=== PATIENT | male | born 1950 | race Caucasian/White ===

== ENCOUNTER 2022-03-12 11:45 | Inpatient (IN) | payer MEDICARE ==
[~2022-03-12] VITALS: Ht 188 cm; Wt 64.9 kg
[2022-03-12] MEDS ORDERED: IV NORMAL SALINE 1000 ML BAG IV ONE ×2 (12:00→13:45)
--- NOTE | 2022-03-12 12:01 | NUR ---
PT DOES NOT REMEMBER HIS HOME MEDICATION NAMES AND DOSAGES.
[2022-03-12 12:09] LABS: HEMATOCRIT 41.9 % (36.7-47.1); MEAN CORPUSCULAR HEMOGLOBIN 29.5 uug (23.8-33.4); MEAN CORPUSCULAR VOLUME 90.9 fL (73.0-96.2); PLATELET COUNT (AUTO) 161 K/uL (152-348)
[2022-03-12 12:26] LABS: ALANINE AMINOTRANSFERASE 13 U/L (16-63); ALKALINE PHOSPHATASE 89 U/L (50-136); ASPARTATE AMINOTRANSFERASE 10 U/L (15-37); BILIRUBIN,DIRECT 0.2 mg/dL (0.0-0.2); BILIRUBIN,TOTAL 0.9 mg/dL (0.2-1.0); CARBON DIOXIDE 19 mmol/L (21-32); CHLORIDE 96 mmol/L (98-107); POTASSIUM 4.7 mmol/L (3.5-5.1); TOTAL PROTEIN, SERUM 7.3 g/dL (6.4-8.2); UREA NITROGEN, BLOOD 46 mg/dL (7-18)
[2022-03-12 12:32] LABS: GLUCOSE 560 mg/dL (74-106)
[2022-03-12 12:42] LABS: VENT MODE, VBG room air
[2022-03-12] MEDS ORDERED: INSULIN REGULAR, HUMAN 300 UNIT/3 ML VIAL SQ ONE (13:45)
[2022-03-12] MEDS ORDERED: REMEDY ESSENTIAL ZINC PASTE 113 GM TP PRN (14:00)
[2022-03-12] MEDS ORDERED: IV NS 1000 ML 1,000 ML IV PRN (14:00)
[2022-03-12] MEDS ORDERED: DEXTROSE 50% 50 ML DISP.SYRIN IV PRN (14:00)
[2022-03-12] MEDS ORDERED: MAGNESIUM HYDROXIDE 30 ML LIQUID UDC PO PRN (14:00)
[2022-03-12] MEDS ORDERED: ONDANSETRON 4 MG/2 ML VIAL IV PRN (14:00)
[2022-03-12] MEDS ORDERED: INSULIN REGULAR, HUMAN 300 UNIT/3 ML VIAL ONE (14:16)
[2022-03-12] MEDS ORDERED: CEFTRIAXONE /D5W 50ML IVPB **ER PYXIS IV ONE (14:28)
[2022-03-12] MEDS: CEFTRIAXONE 1 G in IV DEXTROSE 5% 50 ML IV SCH (14:29)
[2022-03-12] MEDS ORDERED: HYDROCODONE/APAP 10-325 MG TABLET ONE (14:55)
[2022-03-12] MEDS: HYDROCODONE/APAP 10-325 MG TABLET PO PRN ×2 (14:58→21:40)
[2022-03-12] MEDS: BLOOD SUGAR DIAGNOSTIC 1 EACH STRIP VI SCH ×2 (16:27→20:41)
[2022-03-12] MEDS: INSULIN REGULAR, HUMAN 300 UNIT/3 ML VIAL SQ PRN ×2 (16:31→21:42)
--- NOTE | 2022-03-12 16:52 | NUR ---
Report given to AUGUSTA Diaz
--- NOTE | 2022-03-12 17:24 | NUR ---
Patient transferred to room 318 in telemetry unit. Accompanied by RN.
[2022-03-12] MEDS ORDERED: BISACODYL 5 MG TABLET.DR PO PRN (17:30)
[2022-03-12 20:35] VITALS: BP 119/61
[2022-03-12] MEDS: TAMSULOSIN HCL 0.4 MG CAP.SR.24H PO SCH (21:40)
[2022-03-13] MEDS: HYDROCODONE/APAP 10-325 MG TABLET PO PRN ×2 (00:22→08:34)
[2022-03-13] MEDS: BLOOD SUGAR DIAGNOSTIC 1 EACH STRIP VI SCH ×6 (00:28→21:46)
[2022-03-13 00:32] VITALS: BP 106/56
[2022-03-13] MEDS: INSULIN REGULAR, HUMAN 300 UNIT/3 ML VIAL SQ PRN ×4 (00:35→16:09)
[2022-03-13] MEDS: IV NS 1000 ML 1,000 ML IV PRN ×2 (03:11→15:05)
[2022-03-13] MEDS: HYDROMORPHONE 1 MG/1 ML DISP.SYRIN IV PRN ×2 (03:25→10:10)
[2022-03-13 04:42] VITALS: BP 110/58
--- NOTE | 2022-03-13 06:56 | NUR ---
Bladder scan 383. Patient refuses in and out catheter.
[2022-03-13 07:20] LABS: HEMATOCRIT 30.6 % (36.7-47.1); MEAN CORPUSCULAR HEMOGLOBIN 31.1 uug (23.8-33.4); MEAN CORPUSCULAR VOLUME 88.6 fL (73.0-96.2); PLATELET COUNT (AUTO) 105 K/uL (152-348)
[2022-03-13 07:50] LABS: ALANINE AMINOTRANSFERASE 20 U/L (16-63); ALKALINE PHOSPHATASE 67 U/L (50-136); ASPARTATE AMINOTRANSFERASE 15 U/L (15-37); BILIRUBIN,TOTAL 0.3 mg/dL (0.2-1.0); CARBON DIOXIDE 20 mmol/L (21-32); CHLORIDE 99 mmol/L (98-107); GLUCOSE 147 mg/dL (74-106); MAGNESIUM 1.3 mg/dL (1.8-2.4); PHOSPHOROUS 3.4 mg/dL (2.5-4.9); POTASSIUM 4.1 mmol/L (3.5-5.1); TOTAL PROTEIN, SERUM 5.8 g/dL (6.4-8.2); UREA NITROGEN, BLOOD 52 mg/dL (7-18)
--- NOTE | 2022-03-13 08:00 | NUR ---
Awake, alert, oriented x 4, reports of back pain. IVF infusing
--- NOTE | 2022-03-13 08:00 | NUR ---
Awake, confused, on bilateral soft wrist restraints, monitored per protocol. IVF infusing. NPO maintained Addendum: 03/13/22 at 1300 by ZINA GILLILAND RN notes not for this patient
[2022-03-13] MEDS ORDERED: MAGNESIUM SULFATE/D5W 100 ML IV SCH (10:00)
[2022-03-13] MEDS: MAGNESIUM SULFATE/D5W 100 ML IV SCH ×2 (10:03→11:04)
--- NOTE | 2022-03-13 10:10 | NUR ---
Back pain not relieved with Lamar po, Dilaudid IV given as ordered
[2022-03-13 11:53] VITALS: BP 104/59
[2022-03-13] MEDS ORDERED: DILTIAZEM HCL 30 MG TABLET PO SCH (12:00)
[2022-03-13] MEDS ORDERED: DEXTROSE 50% 50 ML DISP.SYRIN IV PRN (12:45)
--- NOTE | 2022-03-13 12:56 | NUR ---
Started on pureed, nectar thick diet, assisted with meal Addendum: 03/13/22 at 1301 by ZINA GILLILAND RN notes not for this patient
[2022-03-13] MEDS: CEFTRIAXONE 1 G in IV DEXTROSE 5% 50 ML IV SCH (13:39)
[2022-03-13] MEDS: HYDROMORPHONE 2 MG/1 ML DISP.SYRIN IV PRN ×2 (13:40→21:45)
--- NOTE | 2022-03-13 13:40 | NUR ---
With severe back pain, unable to move in bed. Dilaudid dose increased, given as ordered.
--- NOTE | 2022-03-13 15:29 | NUR ---
Refused to give list of home medications today, will follow up
[2022-03-13] MEDS: ACETAMINOPHEN 325 MG TABLET PO PRN (15:59)
--- NOTE | 2022-03-13 16:00 | NUR ---
Temperature 101.6F; Tylenol po given. O2 sat room air 88%, placed on O2 at 2L/NC with O2 sat of 91%, placed on 3L/NC with O2 sat of 94%. hospitalist informed with orders for CXR. Pain better controlled. PT eval done. Assisted to edge of bed, able to stand up.
[2022-03-13 16:32] VITALS: BP 131/64
[2022-03-13 17:51] LABS: *BILIRUBIN,URIN NEGATIVE (NEGATIVE); *BLOOD, URINE NEGATIVE (NEGATIVE); *CLARITY,URINE CLEAR (CLEAR); *COLOR,URINE YELLOW (YELLOW); *KETONES,URINE TRACE (NEGATIVE); *UROBILINOGEN,URINE 0.2 E.U./dl (NORMAL); LEUKOCYTE ESTERASE ,URINE NEGATIVE (NEGATIVE); NITRITE, URINE NEGATIVE (NEGATIVE); UGLUCOSE NEGATIVE (NEGATIVE)
--- NOTE | 2022-03-13 17:57 | NUR ---
With poor appetite, encouraged to take oral supplement. Urine specimen sent to lab. Latest temperature 99.9F
--- NOTE | 2022-03-13 20:00 | NUR ---
Bladder scan not done. Patient refused
[2022-03-13 20:31] VITALS: BP 144/72
[2022-03-13] MEDS: TAMSULOSIN HCL 0.4 MG CAP.SR.24H PO SCH (21:45)
[2022-03-13] MEDS ORDERED: MEROPENEM 1 G in IV NORMAL SALINE 100 ML IV SCH (22:00)
[2022-03-14] MEDS: INSULIN REGULAR, HUMAN 300 UNIT/3 ML VIAL SQ PRN ×4 (00:03→22:02)
[2022-03-14 00:36] VITALS: BP 144/72
[2022-03-14] MEDS: HYDROCODONE/APAP 10-325 MG TABLET PO PRN ×3 (00:52→18:06)
[2022-03-14 04:05] VITALS: BP 160/60
[2022-03-14] MEDS: HYDROMORPHONE 2 MG/1 ML DISP.SYRIN IV PRN ×3 (04:07→22:06)
--- NOTE | 2022-03-14 04:56 | NUR ---
Patient sleeps on and off when medicated for pain. He complains of severe back pain. He is medicated three time this shift with some good effect. Patient encouraged to keep O2 on as O2 sat drops to 88% without oxygen. Oxygen saturation remains at 94% on 3L/min. No fever this shift 99.4 at 2000 and 98.3 at 0000.
[2022-03-14] MEDS: BLOOD SUGAR DIAGNOSTIC 1 EACH STRIP VI SCH ×4 (06:37→22:03)
[2022-03-14 07:29] LABS: HEMATOCRIT 32.2 % (36.7-47.1); PLATELET COUNT (AUTO) 110 K/uL (152-348)
[2022-03-14 07:41] LABS: CREATININE 1.3 mg/dL (0.6-1.3); MAGNESIUM 2.1 mg/dL (1.8-2.4); POTASSIUM 4.4 mmol/L (3.5-5.1)
[2022-03-14] MEDS ORDERED: MEROPENEM 1 G in IV NORMAL SALINE 100 ML IV ONE (08:00)
[2022-03-14] MEDS: LIDOCAINE 5% PATCH TD SCH (08:31)
[2022-03-14] MEDS: GLUCERNA SHAKE 237 ML CAN PO SCH (08:44)
[2022-03-14] MEDS ORDERED: IV NORMAL SALINE 250 ML IV ONE (08:59)
[2022-03-14] MEDS ORDERED: IOHEXOL 350 100 ML INFUS..BTL ONE (08:59)
[2022-03-14] MEDS ORDERED: SWABABLE VALVE TRANSFER SET EA MC ONE (08:59)
[2022-03-14] MEDS ORDERED: HEPARIN SODIUM,PORCINE 5,000 UNITS/ML VIAL SQ SCH (09:00)
--- NOTE | 2022-03-14 09:19 | NUR ---
patient agreed to proceed with CTA Chest Angio. RN to fill out Contrast Consent form before procedure. RN notified to call Radiology when ready.
[2022-03-14 12:21] VITALS: BP 160/75
[2022-03-14 13:06] LABS: ABG BASE EXCESS -11.7 mmol/L; ABG HCO3 12.8 mmol/L; ABG PCO2 25.6 mmHg (35.0-45.0); ABG PH 7.317 (7.350-7.450); ABG PO2 155.1 mmHg (75.0-100.0); ABG SITE RIGHT RADIAL; ABG TOTAL HEMOGLOBIN 11.5 G/dL (13.5-18.0); COHb 0.3 % (0.5-1.5); MetHb 0.3 % (0.0-1.5); O2Hb 98.3 % (94.0-97.0)
[2022-03-14] MEDS: ENOXAPARIN SODIUM 60 MG/0.6 ML DISP.SYRIN SQ SCH ×2 (13:39→21:10)
[2022-03-14] MEDS ORDERED: SODIUM BICARBONATE 8.4% 50 MEQ/50 ML DISP.SYRIN IV ONE (14:00)
[2022-03-14] MEDS ORDERED: FUROSEMIDE 40 MG/4 ML VIAL IV ONE (14:00)
[2022-03-14 17:09] VITALS: BP 153/84
--- NOTE | 2022-03-14 17:17 | NUR ---
At 1645 noted patient having low BS of 75/37 and pt. was asymptomatic. At 1715 BP rechecked and noted to be 86/41. Reported to Dr. Drake and received order for bolus 500cc NS. will keep monitoring the patient. Addendum: 03/14/22 at 1838 by IAN VILLAGRAN RN Error
[2022-03-14] MEDS: MEROPENEM 1 G in IV NORMAL SALINE 100 ML IV SCH (20:05)
[2022-03-14 20:52] VITALS: BP 106/55
[2022-03-14] MEDS: TAMSULOSIN HCL 0.4 MG CAP.SR.24H PO SCH (21:08)
[2022-03-15] VITALS (37 sets, daily range): BP systolic 67–135; BP diastolic 33–100
[2022-03-15] MEDS: HYDROCODONE/APAP 10-325 MG TABLET PO PRN (00:50)
[2022-03-15] MEDS: HYDROMORPHONE 2 MG/1 ML DISP.SYRIN IV PRN (01:54)
[2022-03-15] MEDS ORDERED: DILTIAZEM HCL 25 MG IV IV STA (03:14)
[2022-03-15] MEDS ORDERED: IV NORMAL SALINE 500 ML BAG IV ONE (05:00)
--- NOTE | 2022-03-15 06:33 | NUR ---
Yesterday patient was refusing to put Tele back; when tele was placed back, pt is tachycardic and was in pain, dilaudid and norco for pain management; when pt was pain free, pt's heart rate remains on the 140-150's sustaining; pt is also afebrile; EKG STAT done and referred to Antonia BURNS NP and orders for cardizem 10 mg IVP x1; pt's heart rate remains unchanged with the cardizem bolus and HR remains unchanged; BP dropped to 95/55, this was referred to Antonia BURNS NP and bolus of 500 ml NS and administered; latest BP is 127/90 and HR remains 130s-140s. continue to monitor. BS is 220
[2022-03-15] MEDS: BLOOD SUGAR DIAGNOSTIC 1 EACH STRIP VI SCH ×4 (06:41→21:16)
[2022-03-15 06:48] LABS: MEAN CORPUSCULAR HEMOGLOBIN 30.7 uug (23.8-33.4); PLATELET COUNT (AUTO) 221 K/uL (152-348)
[2022-03-15 06:56] LABS: CARBON DIOXIDE 20 mmol/L (21-32); CHLORIDE 107 mmol/L (98-107); CREATININE 2.5 mg/dL (0.6-1.3); GLUCOSE 230 mg/dL (74-106); POTASSIUM 4.5 mmol/L (3.5-5.1); UREA NITROGEN, BLOOD 57 mg/dL (7-18)
--- NOTE | 2022-03-15 07:20 | NUR ---
Found patient desaturating at 80% 02 sat on NRB mask @ 15Lit, pt obtunded and unarousable, breathing very shallow and gasping for air. Resp 24. VS b/p 82/45 - hr 144 tele sydnee, BS 191. Called Rapid response team. Ordered ABG, cxr. Awaiting call back from fadi. Aura Nurse gardening supervisor called ER dr for possible intubation and assessment on patient. [address] Aguirre at bedside ordered to give NS BOLUS, [id number] iv push x 1 and succinycholine 100mg iv pushx 1 and levophed drip to prepare patient for intubation and ER transfer. @733 NS BOLUS started. No ER nurse available to help with rapid and code. @739 Called max macdonald in order to get pharmacist to come up with medications and emergency medication trays. Functioned on giving medications with assistance of pharmacist and dr Aguirre. @745 etomidate and succininycholine given as ordered @746 DR aguirre successfully intubated with RT team. @753 max macdonald called. @755 Levophed started as ordered. current b/p @ the time 61/46 ,pulse 139, o2 sat 100% managed by RT team) @800 increased levophed to 0.2 mcg /kg/min secondary to b/p still low. 65/31 - hr 140 to maintain SBP above 90's @805 b/p 127/73, pulse 145 ,o2 sat 98%. @810 b/p 148/86 pulse 149 99%o2sat. decreased levophed @ 0.1mcg/kg/min. @820 pt sent down to ER/ICU report given to ICU nurse. last b/p 126/70-98%02 sat , pulse 148. Spoke with TUBE WINDER HAND hospitalist fadi. ABG in 2 hrs ordered per fadi.
--- NOTE | 2022-03-15 07:55 | NUR ---
Patient in from [facility] unit accompanied by two RT's. and two nursing students. Patient intubated, severely restless agitated. Heart rate in the 150's 160's and sbp of 117/68. ETT 7.5 and 26LL this after ETT was advanced 2cm as ordered by intubating physician Dr. Gonzalez. Upon arrival pt. situated on cardiac cath technician. and immediately started on propofol drip due to severe agitation and high risk of self extubation. Patient received with levophed running at 0.1 mcg/kg/min. Abattoir Supervisor called and report given to latest EKG done. Orders to change levophed and start Phenylephrine. Addendum: 03/15/22 at 1103 by TULIO BAKER RN Attending also notified upon arrival and orders for propofol received.
[2022-03-15] MEDS ORDERED: NOREPINEPHRINE BITARTRATE 8 MG in IV NORMAL SALINE 242 ML IV PRN (08:30)
[2022-03-15 08:40] LABS: BAND % (MANUAL) 4 % (0-10); LYMPHOCYTES % (MANUAL) 7 % (20-40); METAMYELOCYTES % 1 % (0-1); MONOCYTES % (MANUAL) 24 % (2-10); MYELOCYTES % 1 % (0-0); NEUTROPHILS % (MANUAL) 63 % (42-75)
[2022-03-15] MEDS: GLUCERNA SHAKE 237 ML CAN PO SCH (09:00)
[2022-03-15] MEDS ORDERED: PHENYLEPHRINE IV 100 MG in IV NORMAL SALINE 240 ML IV PRN (09:00)
[2022-03-15] MEDS ORDERED: AMIODARONE HCL IV 150 MG in IV DEXTROSE 5% 100 ML IV ONE (09:00)
--- NOTE | 2022-03-15 09:00 | NUR ---
PICC line insertion in progress no consent Attending ordered as medical necessity See attending notes.
[2022-03-15] MEDS: AMIODARONE HCL IV 450 MG in IV DEXTROSE 5% 250 ML IV PRN ×3 (09:36→15:57)
[2022-03-15] MEDS: PROPOFOL 100 ML IV PRN ×3 (09:38→21:06)
[2022-03-15] MEDS ORDERED: ENOXAPARIN SODIUM 60 MG/0.6 ML DISP.SYRIN SQ ONE ×2 (10:08→20:34)
[2022-03-15] MEDS: MEROPENEM 1 G in IV NORMAL SALINE 100 ML IV SCH ×2 (10:13→21:47)
[2022-03-15] MEDS: ENOXAPARIN SODIUM 60 MG/0.6 ML DISP.SYRIN SQ SCH ×2 (10:17→21:07)
[2022-03-15] MEDS ORDERED: LIDOCAINE 5% PATCH TD ONE (10:18)
[2022-03-15] MEDS: LIDOCAINE 5% PATCH TD SCH (10:23)
[2022-03-15] MEDS ORDERED: SODIUM BICARBONATE 8.4% 50 MEQ/50 ML DISP.SYRIN IV ONE ×2 (10:30→10:42)
[2022-03-15] MEDS ORDERED: ETOMIDATE 20 MG/10 ML VIAL IV ONE (10:38)
[2022-03-15] MEDS ORDERED: SUCCINYLCHOLINE CHLORIDE 200 MG/10 ML VIAL IV ONE (10:38)
--- NOTE | 2022-03-15 11:00 | NUR ---
Attending Bonita Turner in the unit to follow up on pt. Addendum: 03/15/22 at 1519 by TULIO BAKER RN At this time Attending over the phone discussed care plan with family.
--- NOTE | 2022-03-15 11:45 | NUR ---
Pulmonary services. in the unit with his orders after seen patient restless and agitated propofol maxed out to 50mcg/kg/min and orders to start pt. on fentanyl drip and versed drip received.
[2022-03-15] MEDS: INSULIN REGULAR, HUMAN 300 UNIT/3 ML VIAL SQ PRN ×2 (11:47→21:25)
[2022-03-15] MEDS: FENTANYL CITRATE/PF 1,000 MCG in IV NORMAL SALINE 80 ML IV PRN (12:20)
[2022-03-15] MEDS: MIDAZOLAM HCL 50 MG in IV NORMAL SALINE 40 ML IV PRN (12:20)
--- NOTE | 2022-03-15 12:45 | NUR ---
NG_T inserted at this time placement confirmed via auscultation follow up by X-ray.
[2022-03-15] MEDS ORDERED: PROPOFOL 100 ML ONE ×2 (13:45→21:02)
[2022-03-15] MEDS ORDERED: methylPREDNISolone SOD SUCC 40 MG/ML VIAL ONE ×2 (15:08→20:34)
[2022-03-15] MEDS: methylPREDNISolone SOD SUCC 40 MG/ML VIAL IV SCH ×2 (15:09→21:08)
[2022-03-15] MEDS ORDERED: TAMSULOSIN HCL 0.4 MG CAP.SR.24H ONE (20:35)
[2022-03-15] MEDS: TAMSULOSIN HCL 0.4 MG CAP.SR.24H PO SCH (21:08)
[2022-03-16] VITALS (31 sets, daily range): BP systolic 119–149; BP diastolic 47–73
[2022-03-16] MEDS: MIDAZOLAM HCL 50 MG in IV NORMAL SALINE 40 ML IV PRN ×2 (00:31→13:01)
[2022-03-16] MEDS ORDERED: SULFACETAMIDE SOD 10% OPHT DR 15 ML BOTTLE ONE (02:21)
[2022-03-16] MEDS ORDERED: PROPOFOL 100 ML ONE ×2 (04:55→20:56)
[2022-03-16 05:01] LABS: HEMATOCRIT 33.9 % (36.7-47.1); MEAN CORPUSCULAR HEMOGLOBIN 30.9 uug (23.8-33.4); MEAN CORPUSCULAR VOLUME 91.6 fL (73.0-96.2); PLATELET COUNT (AUTO) 235 K/uL (152-348)
[2022-03-16] MEDS: PROPOFOL 100 ML IV PRN ×3 (05:30→23:17)
[2022-03-16] MEDS ORDERED: methylPREDNISolone SOD SUCC 40 MG/ML VIAL ONE ×3 (05:41→22:59)
[2022-03-16 05:44] LABS: BILIRUBIN,DIRECT 0.3 mg/dL (0.0-0.2); BILIRUBIN,TOTAL 0.6 mg/dL (0.2-1.0); TOTAL PROTEIN, SERUM 5.9 g/dL (6.4-8.2)
[2022-03-16] MEDS: AMIODARONE HCL IV 450 MG in IV DEXTROSE 5% 250 ML IV PRN (05:46)
[2022-03-16] MEDS: methylPREDNISolone SOD SUCC 40 MG/ML VIAL IV SCH ×3 (05:54→23:22)
[2022-03-16 06:03] LABS: ABG BASE EXCESS -16.8 mmol/L; ABG HCO3 11.7 mmol/L; ABG PCO2 36.8 mmHg (35.0-45.0); ABG PH 7.119 (7.350-7.450); ABG PO2 70.5 mmHg (75.0-100.0); ABG SITE LEFT BRACHIAL; ABG TOTAL HEMOGLOBIN 12.5 G/dL (13.5-18.0); COHb 0.3 % (0.5-1.5); MetHb 0.4 % (0.0-1.5); O2Hb 90.8 % (94.0-97.0); VENT MODE VENT - A/C; VT, ABG 500 mL
[2022-03-16] MEDS ORDERED: ACETAMINOPHEN 325 MG SUPP ONE (06:07)
[2022-03-16] MEDS ORDERED: ACETAMINOPHEN 325 MG TABLET ONE (06:08)
--- NOTE | 2022-03-16 06:13 | NUR ---
G DONE, ALL CRITICAL VALUES RELAYED TO AUGUSTA CAPONE
[2022-03-16] MEDS: ACETAMINOPHEN 325 MG TABLET PO PRN (06:22)
--- NOTE | 2022-03-16 07:00 | NUR ---
Pt. endorsed critical guarded. Pt. remains on Neosynehrine,amiodarone, fentanyl, versed,and propofol .. HR is in 120's Spo2 in low 90s'and pt. on Fio2 100% as documented. inspector filters in for eval . no further interventions could be made. See notes. Pt. hyperthermic at 102.2 Tylenol 650 given and ice compresses. Appears to be comfortable resting on left side. Endorsed injury free. 3 SR up.
--- NOTE | 2022-03-16 07:00 | NUR ---
Received pt. on ventilator A/C 16 Tv 500 Peep +5 and FIO2 100%. no distress noted saturation within desired limits. On fentanyl running at 100mcg/hr, versed at 5mg/hr. adequately sedated. Hemodynamically on sinu/afib controlled uncontrolled rate no greater than 120's On vasopressor with sbp within desire limits. Fever of 100.0 NT-clamped. Jha to gravity PICC line in place. Will continue with care plan.
--- NOTE | 2022-03-16 07:25 | NUR ---
Pt received on Khan ventilator orally intubated with 7.5 ETT secured at 26cm lip line. Pt on ordered settings of A/C 16, VT 500, +5 PEEP , 100% FiO2. Pt tolerating vent settings well. Suctioned for small amounts of yellowish secretions. No respiratory distress noted. Bag/valve/mask at bedside. HME changed. Oral care done. Vent plugged into red emergency outlet. Will continue to monitor.
--- NOTE | 2022-03-16 07:42 | NUR ---
ABG reports given to pulmonary services, Dr. Barry orders received. TV 550, and 2 AMPS of bicarb received.
[2022-03-16] MEDS ORDERED: ALBUMIN HUMAN 25% 50 ML ONE ×2 (08:00→23:00)
[2022-03-16] MEDS ORDERED: LIDOCAINE 5% PATCH TD ONE (08:00)
[2022-03-16] MEDS ORDERED: FUROSEMIDE 20 MG/2 ML VIAL ONE (08:00)
[2022-03-16] MEDS ORDERED: SODIUM BICARBONATE 8.4% 50 MEQ/50 ML DISP.SYRIN IV ONE ×2 (08:00→08:50)
[2022-03-16 08:25] LABS: CARBON DIOXIDE 14 mmol/L (21-32); CHLORIDE 102 mmol/L (98-107); CREATININE 4.6 mg/dL (0.6-1.3); POTASSIUM 5.6 mmol/L (3.5-5.1)
--- NOTE | 2022-03-16 08:30 | NUR ---
Vent changes made per MD order. VT increased to 550. RN Ojie aware. Pt tolerating vent settings well.
[2022-03-16] MEDS: ALBUMIN HUMAN 25% 100 ML IV SCH ×3 (08:46→23:24)
[2022-03-16] MEDS: BLOOD SUGAR DIAGNOSTIC 1 EACH STRIP VI SCH ×4 (08:52→21:00)
[2022-03-16] MEDS: FUROSEMIDE 40 MG/4 ML VIAL IV SCH ×2 (08:58→23:21)
[2022-03-16] MEDS: LIDOCAINE 5% PATCH TD SCH (08:59)
[2022-03-16] MEDS: GLUCERNA SHAKE 237 ML CAN PO SCH (08:59)
[2022-03-16] MEDS: INSULIN REGULAR, HUMAN 300 UNIT/3 ML VIAL SQ PRN ×4 (09:02→23:11)
[2022-03-16] MEDS ORDERED: AMIODARONE HCL 200 MG TABLET ONE ×2 (09:14→22:31)
[2022-03-16] MEDS: AMIODARONE HCL 200 MG TABLET PO SCH ×2 (09:15→22:32)
--- NOTE | 2022-03-16 09:46 | NUR ---
Pulmonary services, Dr. Barry in the unit to see and examine pt. report given order for 3amps of bicarb in D51/2NS at 100cc/hr received and implemented.
[2022-03-16] MEDS: MEROPENEM 1 G in IV NORMAL SALINE 100 ML IV SCH (10:05)
[2022-03-16] MEDS: SODIUM BICARBONATE 8.4% 150 MEQ in IV D5 1/2 NS 1000 ML 1,000 ML IV PRN ×2 (10:37→23:08)
[2022-03-16 10:39] LABS: GLUCOSE 347 mg/dL (74-106); UREA NITROGEN, BLOOD 86 mg/dL (7-18)
[2022-03-16] MEDS: FENTANYL CITRATE/PF 1,000 MCG in IV NORMAL SALINE 80 ML IV PRN ×2 (13:18→22:06)
[2022-03-16] MEDS ORDERED: ALBUMIN HUMAN 25% 100 ML ONE (14:11)
[2022-03-16] MEDS: GLUCERNA 1.2 1000ML LIQUID GT PRN (17:53)
--- NOTE | 2022-03-16 18:19 | NUR ---
Patient remains on the ventilator on AC rate of 16, TV 500, PEEP of 5, 100%FiO2. No tachypnea, no distress noted, and O2 sat of 100%. Minimal secretions thru ET tube and orally. Neuro gillespie adequately sedated, propofol running at 30 mcg/kg/min, fentanyl at 100 mcg/kg/min, versed 5 mcg/kg/min. Unable to remove stop propofol. Hemodynamically sinus rhythm, BP WNL of vasopressors. Mild generalized edema. GI gillespie started on glucerna as ordered. gillespie reyes to gravity with 0 output attending aware. Skin breakdown no complications, PICC line patent will endorse for continuative care.
[2022-03-16] MEDS ORDERED: ENOXAPARIN SODIUM 60 MG/0.6 ML DISP.SYRIN SQ SCH (21:00)
--- NOTE | 2022-03-16 21:02 | NUR ---
Dr Epstein called and stated he spoke with cammie Garcia who agree to have diaysis cath placed.
[2022-03-16] MEDS ORDERED: MEROPENEM 500 MG VIAL IV ONE (22:59)
[2022-03-16] MEDS ORDERED: FUROSEMIDE 40 MG/4 ML VIAL ONE (22:59)
[2022-03-16] MEDS ORDERED: ENOXAPARIN SODIUM 60 MG/0.6 ML DISP.SYRIN SQ ONE (23:00)
[2022-03-16] MEDS ORDERED: TAMSULOSIN HCL 0.4 MG CAP.SR.24H ONE (23:01)
[2022-03-16] MEDS ORDERED: MEROPENEM 500MG/NS 50ML PB ***ER PYXIS ONLY IV ONE (23:02)
[2022-03-16] MEDS: TAMSULOSIN HCL 0.4 MG CAP.SR.24H PO SCH (23:20)
[2022-03-16] MEDS: MEROPENEM 500 MG in IV NORMAL SALINE 50 ML IV SCH (23:21)
[2022-03-17] VITALS (16 sets, daily range): BP systolic 112–144; BP diastolic 44–69
[2022-03-17] MEDS ORDERED: ALBUMIN HUMAN 25% 50 ML ONE (02:25)
[2022-03-17] MEDS: ALBUMIN HUMAN 25% 100 ML IV SCH (02:36)
[2022-03-17] MEDS: MIDAZOLAM HCL 50 MG in IV NORMAL SALINE 40 ML IV PRN ×3 (04:15→21:31)
[2022-03-17 05:14] LABS: CARBON DIOXIDE 25 mmol/L (21-32); CHLORIDE 105 mmol/L (98-107); CREATININE 4.7 mg/dL (0.6-1.3); MAGNESIUM 2.6 mg/dL (1.8-2.4); PHOSPHOROUS 5.9 mg/dL (2.5-4.9); POTASSIUM 3.9 mmol/L (3.5-5.1)
[2022-03-17 05:18] LABS: GLUCOSE 345 mg/dL (74-106); UREA NITROGEN, BLOOD 96 mg/dL (7-18)
[2022-03-17] MEDS ORDERED: PROPOFOL 100 ML ONE (05:30)
[2022-03-17 05:39] LABS: HEMATOCRIT 24.6 % (36.7-47.1); MEAN CORPUSCULAR HEMOGLOBIN 30.5 uug (23.8-33.4); PLATELET COUNT (AUTO) 132 K/uL (152-348)
[2022-03-17 05:47] LABS: ABG HCO3 22.2 mmol/L; ABG PCO2 35.1 mmHg (35.0-45.0); ABG PH 7.418 (7.350-7.450); ABG SITE RIGHT RADIAL; COHb 0.3 % (0.5-1.5); MetHb 0.2 % (0.0-1.5); O2Hb 97.9 % (94.0-97.0); VENT MODE VENT - A/C; VT, ABG 550 mL
[2022-03-17] MEDS: methylPREDNISolone SOD SUCC 40 MG/ML VIAL IV SCH ×3 (06:03→21:36)
[2022-03-17] MEDS: INSULIN REGULAR, HUMAN 300 UNIT/3 ML VIAL SQ PRN ×4 (06:08→17:04)
--- NOTE | 2022-03-17 07:15 | NUR ---
Received pt. with HD procedure in progress. Hemodynamically stable, NSR rate of 60-80's afebrile. Remains on ventilator A/C 16, Tv 550 FIO2 100%, PEEP +5, saturation of 95-98% no resp. distress. Neuro-gillespie adequately sedated. NG with feeding running as ordered will be turn off for the next 2 hours. Jha to gravity PICC line patent. Will continue to monitor.
--- NOTE | 2022-03-17 07:15 | NUR ---
Received pt on fentanyl running at 10mcg/hr and versed running at 5mg/h. propofol at 30mcg/kg/min.
[2022-03-17] MEDS: BLOOD SUGAR DIAGNOSTIC 1 EACH STRIP VI SCH ×4 (07:35→21:55)
[2022-03-17] MEDS ORDERED: LIDOCAINE 5% PATCH TD ONE (08:05)
[2022-03-17] MEDS ORDERED: AMIODARONE HCL 200 MG TABLET ONE ×2 (08:05→21:25)
--- NOTE | 2022-03-17 08:10 | NUR ---
Cardiology services, Dr. Florez in the unit to see and examine pt. report given orders to continue with care plan received.
[2022-03-17] MEDS: LIDOCAINE 5% PATCH TD SCH (08:14)
[2022-03-17] MEDS: AMIODARONE HCL 200 MG TABLET PO SCH ×2 (08:14→21:37)
[2022-03-17] MEDS: GLUCERNA SHAKE 237 ML CAN PO SCH (08:14)
--- NOTE | 2022-03-17 10:00 | NUR ---
Attending Katherine Ashford in the unit to see and examine pt. report given orders to continue with care plan received.
--- NOTE | 2022-03-17 10:00 | NUR ---
By user error orders received by Dr. lees. pulmonary
[2022-03-17] MEDS: MEROPENEM 500 MG in IV NORMAL SALINE 50 ML IV SCH ×2 (10:27→21:35)
--- NOTE | 2022-03-17 11:38 | NUR ---
Pulmonary services, Dr. Barry in the unit to see and examine pt. report given orders to stop bicarb drip received. and orders for cpap trial for 03/18/2022 at 0800. CPAP of PSV 10 +peep Addendum: 03/17/22 at 1149 by TULIO BAKER RN PEEP +5 ABG in an hour or earlier if not tolerated. Addendum: 03/17/22 at 1443 by TULIO BAKER RN User error metal drawer is Dr. Javier
[2022-03-17] MEDS: FENTANYL CITRATE/PF 1,000 MCG in IV NORMAL SALINE 80 ML IV PRN ×2 (12:23→21:33)
[2022-03-17] MEDS ORDERED: methylPREDNISolone SOD SUCC 40 MG/ML VIAL ONE (14:20)
[2022-03-17] MEDS ORDERED: HEPARIN SODIUM,PORCINE 5,000 UNITS/ML VIAL ONE (21:25)
[2022-03-17] MEDS ORDERED: TAMSULOSIN HCL 0.4 MG CAP.SR.24H ONE (21:25)
[2022-03-17] MEDS ORDERED: methylPREDNISolone SOD SUCC 125 MG/2 ML VIAL ONE (21:26)
[2022-03-17] MEDS ORDERED: MEROPENEM 500 MG VIAL IV ONE (21:28)
[2022-03-17] MEDS ORDERED: MEROPENEM 1 G VIAL IV ONE (21:28)
[2022-03-17] MEDS: HEPARIN SODIUM,PORCINE 5,000 UNITS/ML VIAL SQ SCH (21:38)
[2022-03-17] MEDS: TAMSULOSIN HCL 0.4 MG CAP.SR.24H PO SCH (21:38)
[2022-03-18] VITALS (24 sets, daily range): BP systolic 112–201; BP diastolic 52–83
[2022-03-18] MEDS: FENTANYL CITRATE/PF 1,000 MCG in IV NORMAL SALINE 80 ML IV PRN ×3 (04:47→21:18)
[2022-03-18 04:51] LABS: HEMATOCRIT 28.1 % (36.7-47.1); MEAN CORPUSCULAR VOLUME 90.2 fL (73.0-96.2); PLATELET COUNT (AUTO) 123 K/uL (152-348)
[2022-03-18 05:06] LABS: HEPATITIS B SURFACE AG Negative (Negative)
[2022-03-18 05:07] LABS: CARBON DIOXIDE 26 mmol/L (21-32); CHLORIDE 103 mmol/L (98-107); CREATININE 3.6 mg/dL (0.6-1.3); MAGNESIUM 2.5 mg/dL (1.8-2.4); PHOSPHOROUS 4.7 mg/dL (2.5-4.9); POTASSIUM 3.9 mmol/L (3.5-5.1)
[2022-03-18 05:11] LABS: GLUCOSE 429 mg/dL (74-106); UREA NITROGEN, BLOOD 86 mg/dL (7-18)
[2022-03-18 05:24] LABS: ABG BASE EXCESS -0.6 mmol/L; ABG HCO3 22.8 mmol/L; ABG PCO2 32.9 mmHg (35.0-45.0); ABG PH 7.458 (7.350-7.450); ABG PO2 93.3 mmHg (75.0-100.0); ABG SITE RIGHT RADIAL; ABG TOTAL HEMOGLOBIN 10.3 G/dL (13.5-18.0); COHb 0.3 % (0.5-1.5); MetHb 0.3 % (0.0-1.5); VENT MODE VENT - A/C; VT, ABG 550 mL
[2022-03-18 06:06] LABS: AMYLASE 35 U/L (25-115); CHOLESTEROL 119 mg/dL (<200); HDL CHOLESTEROL 14 mg/dL (40-60); TRIGLYCERIDES 403 MG/DL (30-150)
[2022-03-18 06:19] LABS: LIPASE 79 U/L (73-393)
[2022-03-18] MEDS: methylPREDNISolone SOD SUCC 40 MG/ML VIAL IV SCH ×3 (06:52→21:06)
[2022-03-18] MEDS: MIDAZOLAM HCL 50 MG in IV NORMAL SALINE 40 ML IV PRN (07:50)
[2022-03-18] MEDS: BLOOD SUGAR DIAGNOSTIC 1 EACH STRIP VI SCH ×4 (07:50→21:00)
[2022-03-18] MEDS: INSULIN REGULAR, HUMAN 300 UNIT/3 ML VIAL SQ PRN ×4 (07:52→17:17)
[2022-03-18] MEDS ORDERED: hydrALAZINE HCL 20 MG/1 ML VIAL IV PRN (08:15)
[2022-03-18] MEDS ORDERED: hydrALAZINE HCL 20 MG/1 ML VIAL ONE (08:19)
--- NOTE | 2022-03-18 08:26 | NUR ---
prn order received from Dr. disla. Patient BP in 180's. patient tachycardiac. order fro weaning this am and is on fio2 90%. turned off fentanyl and versed for sedation vacation and proceed with weaning as ordered.
[2022-03-18 08:59] LABS: ABG HCO3 21.7 mmol/L; ABG PCO2 29.7 mmHg (35.0-45.0); ABG PH 7.481 (7.350-7.450); ABG PO2 155.9 mmHg (75.0-100.0); ABG SITE RIGHT RADIAL; ABG TOTAL HEMOGLOBIN 11.2 G/dL (13.5-18.0); COHb 0.3 % (0.5-1.5); MetHb 0.3 % (0.0-1.5); O2Hb 98.2 % (94.0-97.0); VENT MODE VENT - CPAP
[2022-03-18] MEDS: GLUCERNA SHAKE 237 ML CAN PO SCH (09:00)
[2022-03-18] MEDS ORDERED: MEROPENEM 500MG/NS 50ML PB ***ER PYXIS ONLY IV ONE (09:36)
[2022-03-18] MEDS ORDERED: HEPARIN SODIUM,PORCINE 5,000 UNITS/ML VIAL ONE (09:36)
[2022-03-18] MEDS ORDERED: LIDOCAINE 5% PATCH TD ONE (09:36)
[2022-03-18] MEDS ORDERED: AMIODARONE HCL 200 MG TABLET ONE (09:37)
[2022-03-18] MEDS: AMIODARONE HCL 200 MG TABLET PO SCH ×2 (09:38→20:47)
[2022-03-18] MEDS: HEPARIN SODIUM,PORCINE 5,000 UNITS/ML VIAL SQ SCH (09:39)
[2022-03-18] MEDS: MEROPENEM 500 MG in IV NORMAL SALINE 50 ML IV SCH ×2 (09:40→21:06)
[2022-03-18] MEDS: LIDOCAINE 5% PATCH TD SCH (09:40)
[2022-03-18] MEDS ORDERED: ACETAMINOPHEN 650 MG/20.3 ML LIQUID UDC ONE (10:11)
[2022-03-18] MEDS: ACETAMINOPHEN 325 MG TABLET PO PRN (10:14)
[2022-03-18] MEDS ORDERED: PROPOFOL 100 ML ONE (11:08)
[2022-03-18] MEDS: PROPOFOL 100 ML IV PRN (11:09)
[2022-03-18] MEDS: APIXABAN 2.5 MG TABLET PO SCH ×2 (11:19→21:00)
[2022-03-18] MEDS ORDERED: CARVEDILOL 12.5 MG TABLET ONE (12:57)
[2022-03-18] MEDS: CARVEDILOL 12.5 MG TABLET PO SCH ×2 (12:59→17:56)
[2022-03-18] MEDS: MICAFUNGIN SODIUM 100 MG in IV NORMAL SALINE 100 ML IV SCH (14:24)
--- NOTE | 2022-03-18 14:55 | NUR ---
blood sugar at this time is 375. reported to shira logan. its ok to give additional dose of insulin as per sliding scale. add continue solumedrol dose as scheduled.
[2022-03-18] MEDS ORDERED: methylPREDNISolone SOD SUCC 40 MG/ML VIAL ONE (14:58)
[2022-03-18] MEDS: TAMSULOSIN HCL 0.4 MG CAP.SR.24H PO SCH (21:04)
[2022-03-18] MEDS: ATORVASTATIN 40 MG TABLET PO SCH (21:12)
[2022-03-19] VITALS (14 sets, daily range): BP systolic 125–156; BP diastolic 58–74
[2022-03-19 05:18] LABS: HEMATOCRIT 28.1 % (36.7-47.1); MEAN CORPUSCULAR HEMOGLOBIN 30.3 uug (23.8-33.4); MEAN CORPUSCULAR VOLUME 88.7 fL (73.0-96.2); PLATELET COUNT (AUTO) 98 K/uL (152-348)
[2022-03-19 05:26] LABS: CARBON DIOXIDE 30 mmol/L (21-32); CHLORIDE 105 mmol/L (98-107); CREATININE 2.2 mg/dL (0.6-1.3); GLUCOSE 206 mg/dL (74-106); MAGNESIUM 2.3 mg/dL (1.8-2.4); PHOSPHOROUS 4.4 mg/dL (2.5-4.9); POTASSIUM 3.4 mmol/L (3.5-5.1); UREA NITROGEN, BLOOD 74 mg/dL (7-18)
[2022-03-19] MEDS: methylPREDNISolone SOD SUCC 40 MG/ML VIAL IV SCH ×2 (06:00→22:00)
[2022-03-19] MEDS: BLOOD SUGAR DIAGNOSTIC 1 EACH STRIP VI SCH ×2 (07:39→21:00)
[2022-03-19 08:11] LABS: ABG BASE EXCESS -0.6 mmol/L; ABG HCO3 22.6 mmol/L; ABG PCO2 32.2 mmHg (35.0-45.0); ABG PH 7.465 (7.350-7.450); ABG SITE RIGHT RADIAL; ABG TOTAL HEMOGLOBIN 10.5 G/dL (13.5-18.0); MetHb 0.3 % (0.0-1.5); O2Hb 96.8 % (94.0-97.0); VENT MODE CPAP
[2022-03-19 08:48] LABS: NEUTROPHILS % (MANUAL) 0 % (42-75)
[2022-03-19] MEDS ORDERED: OLANZAPINE 10 MG VIAL IM ONE (09:18)
[2022-03-19] MEDS ORDERED: POTASSIUM CHLORIDE 50 ML IV SCH (10:30)
[2022-03-19] MEDS: ATORVASTATIN 40 MG TABLET PO SCH (21:00)
[2022-03-19] MEDS: AMIODARONE HCL 200 MG TABLET PO SCH (21:00)
[2022-03-19] MEDS: TAMSULOSIN HCL 0.4 MG CAP.SR.24H PO SCH (21:00)
[2022-03-19] MEDS: CARVEDILOL 12.5 MG TABLET PO SCH ×2 (22:00→23:47)
[2022-03-19] MEDS: FENTANYL CITRATE/PF 1,000 MCG in IV NORMAL SALINE 80 ML IV PRN (22:00)
[2022-03-19] MEDS: MEROPENEM 500 MG in IV NORMAL SALINE 50 ML IV SCH (22:00)
[2022-03-19] MEDS: PROPOFOL 100 ML IV PRN (22:18)
[2022-03-19] MEDS: MICAFUNGIN SODIUM 100 MG in IV NORMAL SALINE 100 ML IV SCH (23:00)
[2022-03-20] VITALS (29 sets, daily range): BP systolic 99–142; BP diastolic 46–76
[2022-03-20] MEDS: INSULIN REGULAR, HUMAN 300 UNIT/3 ML VIAL SQ PRN ×4 (01:30→16:29)
[2022-03-20] MEDS: BLOOD SUGAR DIAGNOSTIC 1 EACH STRIP VI SCH ×5 (01:30→21:00)
[2022-03-20] MEDS: PROPOFOL 100 ML IV PRN (02:00)
--- NOTE | 2022-03-20 03:36 | NUR ---
PATIENT ON CONT CHILDERS VENT WITH 7.5 ET/TUBE IN PLACE AND SECURED, VENT SETTINGS, PT ON CPAP 8, RR26-32, SPONT. VT 360 APPROX, FIO2 @ 80%, SUCTION PRN, CHANGE HMECrystal BELLO RCP Addendum: 03/20/22 at 0337 by DENISE BELLO RT Amended: Links added.
[2022-03-20 05:12] LABS: HEMATOCRIT 31.8 % (36.7-47.1); MEAN CORPUSCULAR HEMOGLOBIN 30.3 uug (23.8-33.4); MEAN CORPUSCULAR VOLUME 91.6 fL (73.0-96.2); PLATELET COUNT (AUTO) 125 K/uL (152-348)
[2022-03-20 05:51] LABS: CARBON DIOXIDE 25 mmol/L (21-32); CHLORIDE 106 mmol/L (98-107); CREATININE 2.4 mg/dL (0.6-1.3); MAGNESIUM 2.8 mg/dL (1.8-2.4); PHOSPHOROUS 6.1 mg/dL (2.5-4.9)
[2022-03-20] MEDS: methylPREDNISolone SOD SUCC 40 MG/ML VIAL IV SCH ×3 (06:00→22:17)
--- NOTE | 2022-03-20 06:00 | NUR ---
[id number]--RECEIVED PT WITH ETT TO VENT. PT GERARDO WELL WITH POX OF 96-97%. PT HAS MOD AMT OF PALE-WHITE THICK SPUT. PT GERARDO SX AND RTX WELL. RTX RODERICK HAS BEEN AT BEDSIDE. PT HAS BEEN DIPRIVAN AND FENTANYL DRIPS FOR SEDATION. PT WAS TACHEPNIC WITH RR IN THE 30'S IN FIRST PART OF THE SHIFT BUT EVENTUALLY, PT BECAME LESS AGITATED WITH RR OF 27-25. PUPILS ARE 2MM AND SLUGGISH. PT WAS PLACED ON CPAP TRIAL BY MELY VAUGHN AT APROX 0600. PT GERARDO WELL WITH POX 95-96%. PT HAS IVS VIA RIGHT ARM ML AND LEFT HAND PIV. PT ALSO HAS RIGHT FEMORAL EVANGELINA CATH WITH A PIGTAIL. HD RN CALLING THIS AM TO VERIFY IF PT IS TO RECEIVE HD TODAY BUT NO ORDERS PRESENT AT THIS TIME. PT HAS F/C WITH 1000CC OF YOEL/CLR URINE. PT HAD SM BRN DIARRHEA STOOLX1. BATH AND LINEN CHANGE DONE. AM LAB DONE. PT HAS DNR STATUS. PT CONT. IN STABLE BUT GUARDED COND. PT ENDORSED TO AUGUSTA ALEX RN
[2022-03-20 06:09] LABS: GLUCOSE 537 mg/dL (74-106); UREA NITROGEN, BLOOD 100 mg/dL (7-18)
[2022-03-20 07:39] LABS: ABG BASE EXCESS 1.8 mmol/L; ABG HCO3 25.8 mmol/L; ABG PH 7.449 (7.350-7.450); ABG PO2 92.9 mmHg (75.0-100.0); ABG SITE RIGHT RADIAL; ABG TOTAL HEMOGLOBIN 11.4 G/dL (13.5-18.0); COHb 0.3 % (0.5-1.5); CPAP,BG 8 cmH20; MetHb 0.2 % (0.0-1.5); O2Hb 96.2 % (94.0-97.0); VENT MODE VENT - CPAP
[2022-03-20] MEDS: APIXABAN 2.5 MG TABLET PO SCH ×2 (09:00→21:00)
[2022-03-20] MEDS: AMIODARONE HCL 200 MG TABLET PO SCH ×2 (09:49→22:17)
[2022-03-20] MEDS: CARVEDILOL 12.5 MG TABLET PO SCH ×2 (09:49→17:55)
[2022-03-20] MEDS: INSULIN GLARGINE,HUM 300 UNITS/3 ML CARTRIDGE SQ SCH ×2 (09:50→21:00)
[2022-03-20] MEDS: MEROPENEM 500 MG in IV NORMAL SALINE 50 ML IV SCH ×2 (09:52→22:30)
--- NOTE | 2022-03-20 13:10 | NUR ---
HD finalized at this time a total of 1300 cc's output reported pt. tolerated procedure fairly with sbp in th low 90's for the last 2 hours, procedure slowdown as reported.
[2022-03-20] MEDS: MICAFUNGIN SODIUM 100 MG in IV NORMAL SALINE 100 ML IV SCH ×2 (14:01→22:26)
[2022-03-20] MEDS: TAMSULOSIN HCL 0.4 MG CAP.SR.24H PO SCH (22:16)
[2022-03-20] MEDS: ATORVASTATIN 40 MG TABLET PO SCH (22:16)
[2022-03-20] MEDS: GLUCERNA 1.2 1000ML LIQUID GT PRN (22:32)
[2022-03-21] VITALS (28 sets, daily range): BP systolic 100–156; BP diastolic 50–70
[2022-03-21] MEDS: PROPOFOL 100 ML IV PRN ×4 (00:25→22:07)
[2022-03-21 05:24] LABS: CARBON DIOXIDE 32 mmol/L (21-32); CHLORIDE 106 mmol/L (98-107); CREATININE 1.7 mg/dL (0.6-1.3); MAGNESIUM 2.6 mg/dL (1.8-2.4); PHOSPHOROUS 4.7 mg/dL (2.5-4.9); POTASSIUM 4.7 mmol/L (3.5-5.1)
[2022-03-21 05:35] LABS: GLUCOSE 469 mg/dL (74-106); UREA NITROGEN, BLOOD 84 mg/dL (7-18)
[2022-03-21 05:44] LABS: HEMATOCRIT 31.5 % (36.7-47.1); MEAN CORPUSCULAR VOLUME 90.8 fL (73.0-96.2); PLATELET COUNT (AUTO) 90 K/uL (152-348)
--- NOTE | 2022-03-21 06:06 | NUR ---
Insulin 7 units wae given sub Q abd. along with the use of sliding scale for blood glucose 469 gm/dl
[2022-03-21] MEDS ORDERED: INSULIN LISPRO 300 UNIT/3 ML VIAL SQ ONE (06:15)
[2022-03-21] MEDS: methylPREDNISolone SOD SUCC 40 MG/ML VIAL IV SCH ×3 (07:14→21:58)
[2022-03-21] MEDS ORDERED: INSULIN REGULAR, HUMAN 300 UNIT/3 ML VIAL SQ ONE (07:15)
[2022-03-21] MEDS: INSULIN REGULAR, HUMAN 300 UNIT/3 ML VIAL SQ PRN ×4 (07:18→22:17)
--- NOTE | 2022-03-21 07:34 | NUR ---
Received pt. on ventilator with no change in vent settings saturation of 97-98%.. No distress blood sugar covered as reported. propofol and fentanyl drip unchanged. G-T running will be off as ordered 22hrs. amy to bryan. Will continue to monitor.
--- NOTE | 2022-03-21 08:43 | NUR ---
A call fro [facility] and Sl[facility]ely reported new left lung collapse to be informed to attending, and microeconomics professor.
[2022-03-21] MEDS: BLOOD SUGAR DIAGNOSTIC 1 EACH STRIP VI SCH ×4 (08:56→21:00)
[2022-03-21] MEDS: CARVEDILOL 12.5 MG TABLET PO SCH ×2 (08:57→17:04)
[2022-03-21] MEDS: AMIODARONE HCL 200 MG TABLET PO SCH ×2 (08:58→21:57)
[2022-03-21] MEDS: LIDOCAINE 5% PATCH TD SCH (09:00)
--- NOTE | 2022-03-21 09:00 | NUR ---
At this time due to restlessness and tachypnea pt. placed back on A/C rate 16 Tv550, FIO2 75% PEEP +5.
[2022-03-21] MEDS: INSULIN GLARGINE,HUM 300 UNITS/3 ML CARTRIDGE SQ SCH ×2 (09:01→22:15)
--- NOTE | 2022-03-21 09:30 | NUR ---
Attending Makeda in the unit to see and follow on pt. report given orders to continue with care plan received.
--- NOTE | 2022-03-21 09:57 | NUR ---
Pulmonary serviceDr. Efrain john in the unit and updated by attending Carlene.
[2022-03-21] MEDS: MEROPENEM 500 MG in IV NORMAL SALINE 50 ML IV SCH ×2 (11:54→21:55)
[2022-03-21] MEDS: APIXABAN 2.5 MG TABLET PO SCH ×2 (12:33→21:00)
[2022-03-21] MEDS: FENTANYL CITRATE/PF 1,000 MCG in IV NORMAL SALINE 80 ML IV PRN (18:24)
[2022-03-21] MEDS: ATORVASTATIN 40 MG TABLET PO SCH (21:55)
[2022-03-21] MEDS: TAMSULOSIN HCL 0.4 MG CAP.SR.24H PO SCH (21:57)
[2022-03-22] VITALS (24 sets, daily range): BP systolic 103–155; BP diastolic 52–70
--- NOTE | 2022-03-22 03:52 | NUR ---
PATIENT ON CONT CHILDERS VENT WITH 7.5 ET/TUBE IN PLACE AND SECURED WITH ANCHOR FAST, WITH CURRENT VENT SETTINGS, A/C 16, 550ML, PEEP5, 75%, PT WITH MOSTLY CONTROLLED VENTILATION, SUCTIONED VERY LIGHT PALE YELL TINGE SECRETIONS, AND SUCTION MOUTH WITH YANKAUER, CHANGE HME, ALL VENT ALARMS GOOD, NO VENT CHANGES MADE, VENT PLUGGED INTO RED WALL OUTLET, AMBU BAG AT BEDSIDE. Antonia BELLO RCP Addendum: 03/22/22 at 0355 by DENISE BELLO RT Amended: Links added.
[2022-03-22 05:10] LABS: HEMATOCRIT 30.8 % (36.7-47.1); MEAN CORPUSCULAR HEMOGLOBIN 30.1 uug (23.8-33.4); MEAN CORPUSCULAR VOLUME 90.2 fL (73.0-96.2); PLATELET COUNT (AUTO) 117 K/uL (152-348)
[2022-03-22 05:34] LABS: CARBON DIOXIDE 33 mmol/L (21-32); CHLORIDE 110 mmol/L (98-107); MAGNESIUM 2.8 mg/dL (1.8-2.4); PHOSPHOROUS 4.1 mg/dL (2.5-4.9); POTASSIUM 5.2 mmol/L (3.5-5.1)
[2022-03-22 05:54] LABS: GLUCOSE 419 mg/dL (74-106)
[2022-03-22 05:55] LABS: UREA NITROGEN, BLOOD 97 mg/dL (7-18)
[2022-03-22] MEDS: methylPREDNISolone SOD SUCC 40 MG/ML VIAL IV SCH ×3 (06:51→21:57)
--- NOTE | 2022-03-22 07:30 | NUR ---
Received pt. from registry nurse on Ventilator A/C16, Tv550 Peep +5 and FIO2 75%. ETT 7.5 26LL. patient on propofol running at 20mcg/kg/min. and fentanyl 40mcg/kg/min. NG-to feeding tolerating well. Picc line patent Jesse in place. Hemodynamically stable sbp within desired limits. Afebrile Will continue to monitor.
--- NOTE | 2022-03-22 07:31 | NUR ---
Patient received on cont carrillo vent via 7.5 ETT @ approx 26CM at the lip. ETT is secured via anchor fast. Patient is on vent settings of A/C RR 16, VT 550, PEEP +5, Fio2 75%. Alarms on and audible. Ventilator plugged in red outlets. PRN sxn provided. Will continue to monitor through out shift.
[2022-03-22] MEDS: BLOOD SUGAR DIAGNOSTIC 1 EACH STRIP VI SCH ×4 (07:50→22:00)
[2022-03-22] MEDS: INSULIN REGULAR, HUMAN 300 UNIT/3 ML VIAL SQ PRN ×4 (07:53→22:08)
[2022-03-22] MEDS: PROPOFOL 100 ML IV PRN ×2 (08:42→16:31)
[2022-03-22] MEDS: APIXABAN 2.5 MG TABLET PO SCH ×2 (09:00→21:00)
--- NOTE | 2022-03-22 09:45 | NUR ---
Cardiology services, Dr. Florez in the unit to see and examine pt. report given, no new orders received
--- NOTE | 2022-03-22 10:31 | NUR ---
Pulmonary services, Dr. Zuniga in the unit to see and examine pt report given orders to continue with care plan received.
[2022-03-22 10:51] LABS: ABG BASE EXCESS 5.2 mmol/L; ABG HCO3 27.8 mmol/L; ABG PCO2 34.3 mmHg (35.0-45.0); ABG PH 7.527 (7.350-7.450); ABG PO2 82.3 mmHg (75.0-100.0); ABG SITE RIGHT RADIAL; ABG TOTAL HEMOGLOBIN 12.7 G/dL (13.5-18.0); COHb 0.3 % (0.5-1.5); MetHb 0.5 % (0.0-1.5); O2Hb 95.4 % (94.0-97.0); VENT MODE VENT - A/C; VT, ABG 550 mL
[2022-03-22] MEDS: LIDOCAINE 5% PATCH TD SCH (11:28)
[2022-03-22] MEDS: INSULIN GLARGINE,HUM 300 UNITS/3 ML CARTRIDGE SQ SCH ×2 (11:28→21:00)
[2022-03-22] MEDS: CARVEDILOL 12.5 MG TABLET PO SCH ×2 (11:29→17:21)
[2022-03-22] MEDS ORDERED: GLUCERNA 1.2 1000ML LIQUID GT PRN (11:30)
--- NOTE | 2022-03-22 12:20 | NUR ---
Attending Kahterine Ashford in the unit and spoke and discuss care plan with family over the phone.
[2022-03-22] MEDS: MICAFUNGIN SODIUM 100 MG in IV NORMAL SALINE 100 ML IV SCH (14:15)
[2022-03-22] MEDS: FENTANYL CITRATE/PF 1,000 MCG in IV NORMAL SALINE 80 ML IV PRN (14:51)
--- NOTE | 2022-03-22 18:28 | NUR ---
Left pt. on Ventilator A/C16, Tv550 Peep +5 and FIO2 75%. ETT 7.5 26LL. patient on propofol running at 20mcg/kg/min. and fentanyl 40mcg/kg/min. NG-to feeding tolerating well. Picc line patent Jesse in place. Hemodynamically stable sbp within desired limits. Afebrile Will continue to monitor.
[2022-03-22] MEDS: AMIODARONE HCL 200 MG TABLET PO SCH (21:56)
[2022-03-22] MEDS: TAMSULOSIN HCL 0.4 MG CAP.SR.24H PO SCH (21:56)
[2022-03-22] MEDS: ATORVASTATIN 40 MG TABLET PO SCH (21:56)
[2022-03-23] VITALS (23 sets, daily range): BP systolic 96–129; BP diastolic 52–68
[2022-03-23] MEDS: PROPOFOL 100 ML IV PRN ×3 (00:07→21:40)
[2022-03-23 03:07] LABS: HEPATITIS B SURFACE AG Negative (Negative)
[2022-03-23 05:36] LABS: HEMATOCRIT 30.8 % (36.7-47.1); MEAN CORPUSCULAR VOLUME 90.6 fL (73.0-96.2); PLATELET COUNT (AUTO) 119 K/uL (152-348)
[2022-03-23 05:47] LABS: CARBON DIOXIDE 32 mmol/L (21-32); CHLORIDE 114 mmol/L (98-107); CREATININE 1.9 mg/dL (0.6-1.3); GLUCOSE 290 mg/dL (74-106); MAGNESIUM 2.7 mg/dL (1.8-2.4); PHOSPHOROUS 4.7 mg/dL (2.5-4.9); POTASSIUM 5.2 mmol/L (3.5-5.1); TRIGLYCERIDES 319 MG/DL (30-150)
--- NOTE | 2022-03-23 06:48 | NUR ---
..patient was moved from the 2nd floor CCU back to ER. 1B. He had a large BM soft ,black amd foul smelling
[2022-03-23] MEDS ORDERED: methylPREDNISolone SOD SUCC 40 MG/ML VIAL ONE ×2 (06:49→22:00)
[2022-03-23] MEDS: methylPREDNISolone SOD SUCC 40 MG/ML VIAL IV SCH ×2 (06:54→22:07)
[2022-03-23] MEDS: BLOOD SUGAR DIAGNOSTIC 1 EACH STRIP VI SCH ×4 (07:30→21:00)
[2022-03-23] MEDS: INSULIN REGULAR, HUMAN 300 UNIT/3 ML VIAL SQ PRN ×4 (08:15→23:07)
[2022-03-23] MEDS ORDERED: PROPOFOL 100 ML ONE ×2 (08:59→19:43)
[2022-03-23] MEDS: LIDOCAINE 5% PATCH TD SCH (09:00)
[2022-03-23 09:37] LABS: ABG BASE EXCESS 2.6 mmol/L; ABG HCO3 26.4 mmol/L; ABG PCO2 37.8 mmHg (35.0-45.0); ABG PH 7.462 (7.350-7.450); ABG PO2 84.7 mmHg (75.0-100.0); ABG SITE RIGHT BRACHIAL; ABG TOTAL HEMOGLOBIN 11.5 G/dL (13.5-18.0); COHb 0.1 % (0.5-1.5); MetHb 0.1 % (0.0-1.5); O2Hb 96.1 % (94.0-97.0); VENT MODE VENT - CPAP
[2022-03-23 09:37] LABS: ABG BASE EXCESS 3.8 mmol/L; ABG HCO3 26.3 mmol/L; ABG PCO2 32.1 mmHg (35.0-45.0); ABG PH 7.531 (7.350-7.450); ABG PO2 78.6 mmHg (75.0-100.0); ABG SITE RIGHT RADIAL; ABG TOTAL HEMOGLOBIN 10.9 G/dL (13.5-18.0); COHb 0.3 % (0.5-1.5); MetHb 0.2 % (0.0-1.5); O2Hb 94.9 % (94.0-97.0); VENT MODE VENT - A/C; VT, ABG 550 mL
[2022-03-23] MEDS: INSULIN GLARGINE,HUM 300 UNITS/3 ML CARTRIDGE SQ SCH (10:02)
[2022-03-23 10:47] LABS: UREA NITROGEN, BLOOD 94 mg/dL (7-18)
[2022-03-23] MEDS ORDERED: CARVEDILOL 12.5 MG TABLET ONE (13:38)
[2022-03-23] MEDS ORDERED: AMIODARONE HCL 200 MG TABLET ONE ×2 (13:39→22:01)
[2022-03-23] MEDS: CARVEDILOL 12.5 MG TABLET PO SCH ×2 (13:41→18:00)
[2022-03-23] MEDS: AMIODARONE HCL 200 MG TABLET PO SCH ×2 (13:42→22:07)
[2022-03-23] MEDS: APIXABAN 2.5 MG TABLET PO SCH ×2 (13:56→22:19)
[2022-03-23] MEDS: MICAFUNGIN SODIUM 100 MG in IV NORMAL SALINE 100 ML IV SCH (14:24)
[2022-03-23] MEDS: FENTANYL CITRATE/PF 1,000 MCG in IV NORMAL SALINE 80 ML IV PRN (15:52)
--- NOTE | 2022-03-23 18:00 | NUR ---
[id number]--RECEIVED PT REPORT FROM AUGUSTA TREVIZO. PT HAS ETT-VENT. PT GERARDO WELL WITH POX 99-94%. FIO2 TITRATED DOWN TO 60%. PT GERARDO RTX AND SX WELL ALSO. DR. TAYLOR IN TO EVAL PT(SEE DR'S ORDS). PT OPENS EYES OCCASS TO NOXIOUS STIMULI BUT DOESN'T FOLLOW S. COMMDS. PT HAS GEN. WEAKNESS. PT HAS BEEN IN SR WITH HR<100. PT HAS BEEN AFEBRILE. ORAL CARE GIVEN. IV I/P VIA RIGHT ARM ML. PT HAS DIPRIVAN AND FENTANYL DRIPS FOR SEDATION. PT ALSO HAS NGT I/P WITH T.FEEDG/PT GERARDO WELL WITH RESID OF 20CC. PT HAS F/C I/P WITH U/O YOEL/CLR. PT HAD 2 SOFT BRN-MED STOOLS. BATH AND LINEN CHANGE DONE. PT HAS RIGHT FEM. JEANNETTE CATH WITH PIGTAIL. PT HAD H.DIALYSIS TODAY BY AUGUSTA SCHULTZ. PT GERARDO WELL-1000CC OUT. EARLIER PT WAS TRANSPORTED FROM CCU VIA BED-TO ER(FOR ICU) WITH RTX AND ACLS PROTOCOL. N. MARYAM SCHULTZ IS AWARE. PT GERARDO WELL. PT'S FAMILY NOTIFIED. NOTIFIED ALSO. RENAL MD IN LATER IN SHIFT TO EVAL PT. PT ENDORSED TO AUGUSTA KEYS IN STABLE BUT GUARDED COND. ISAI DERAS
[2022-03-23] MEDS: ATORVASTATIN 40 MG TABLET PO SCH (21:00)
[2022-03-23] MEDS ORDERED: ATORVASTATIN 20 MG TABLET ONE (22:01)
[2022-03-23] MEDS ORDERED: TAMSULOSIN HCL 0.4 MG CAP.SR.24H ONE (22:01)
[2022-03-23] MEDS: TAMSULOSIN HCL 0.4 MG CAP.SR.24H PO SCH (22:09)
[2022-03-24] VITALS (27 sets, daily range): BP systolic 98–139; BP diastolic 40–86
[2022-03-24 05:01] LABS: HEMATOCRIT 29.8 % (36.7-47.1); MEAN CORPUSCULAR HEMOGLOBIN 30.1 uug (23.8-33.4); MEAN CORPUSCULAR VOLUME 90.4 fL (73.0-96.2); PLATELET COUNT (AUTO) 111 K/uL (152-348)
[2022-03-24 05:05] LABS: CARBON DIOXIDE 31 mmol/L (21-32); CHLORIDE 109 mmol/L (98-107); CREATININE 1.9 mg/dL (0.6-1.3); GLUCOSE 220 mg/dL (74-106); MAGNESIUM 2.4 mg/dL (1.8-2.4); PHOSPHOROUS 4.6 mg/dL (2.5-4.9); POTASSIUM 4.7 mmol/L (3.5-5.1); UREA NITROGEN, BLOOD 28 mg/dL (7-18)
[2022-03-24] MEDS: BLOOD SUGAR DIAGNOSTIC 1 EACH STRIP VI SCH ×4 (07:30→21:00)
--- NOTE | 2022-03-24 07:45 | NUR ---
Pt had an uneventfull night continue on diprivan and fentanel drips.
[2022-03-24] MEDS ORDERED: PROPOFOL 100 ML ONE ×2 (08:34→16:22)
[2022-03-24] MEDS: PROPOFOL 100 ML IV PRN ×2 (08:52→17:30)
[2022-03-24] MEDS ORDERED: CARVEDILOL 6.25 MG TABLET ONE (09:02)
[2022-03-24] MEDS ORDERED: methylPREDNISolone SOD SUCC 40 MG/ML VIAL ONE ×2 (09:03→21:52)
[2022-03-24] MEDS ORDERED: AMIODARONE HCL 200 MG TABLET ONE ×2 (09:03→21:52)
[2022-03-24] MEDS: INSULIN REGULAR, HUMAN 300 UNIT/3 ML VIAL SQ PRN ×3 (09:11→22:33)
[2022-03-24] MEDS: methylPREDNISolone SOD SUCC 40 MG/ML VIAL IV SCH ×2 (09:16→22:04)
[2022-03-24] MEDS: AMIODARONE HCL 200 MG TABLET PO SCH ×2 (09:17→22:04)
[2022-03-24] MEDS: APIXABAN 2.5 MG TABLET PO SCH ×2 (09:19→22:14)
[2022-03-24] MEDS: INSULIN GLARGINE,HUM 300 UNITS/3 ML CARTRIDGE SQ SCH ×2 (09:27→22:36)
[2022-03-24] MEDS ORDERED: LIDOCAINE 5% PATCH TD ONE (09:29)
[2022-03-24] MEDS: LIDOCAINE 5% PATCH TD SCH (09:29)
[2022-03-24 11:13] LABS: ABG BASE EXCESS 3.4 mmol/L; ABG HCO3 25.8 mmol/L; ABG PCO2 31.8 mmHg (35.0-45.0); ABG PH 7.527 (7.350-7.450); ABG PO2 85.3 mmHg (75.0-100.0); ABG SITE RIGHT RADIAL; ABG TOTAL HEMOGLOBIN 11.4 G/dL (13.5-18.0); COHb 0.1 % (0.5-1.5); MetHb 0.2 % (0.0-1.5); O2Hb 96.2 % (94.0-97.0); VENT MODE VENT - A/C; VT, ABG 550 mL
[2022-03-24] MEDS: MICAFUNGIN SODIUM 100 MG in IV NORMAL SALINE 100 ML IV SCH (13:48)
[2022-03-24] MEDS: CARVEDILOL 6.25 MG TABLET PO SCH (17:30)
[2022-03-24] MEDS: FENTANYL CITRATE/PF 1,000 MCG in IV NORMAL SALINE 80 ML IV PRN (17:33)
[2022-03-24] MEDS ORDERED: CARVEDILOL 12.5 MG TABLET PO SCH (18:00)
[2022-03-24] MEDS: ATORVASTATIN 40 MG TABLET PO SCH (21:00)
[2022-03-24] MEDS ORDERED: ATORVASTATIN 20 MG TABLET ONE (21:53)
[2022-03-24] MEDS ORDERED: TAMSULOSIN HCL 0.4 MG CAP.SR.24H ONE (21:53)
[2022-03-24] MEDS: TAMSULOSIN HCL 0.4 MG CAP.SR.24H PO SCH (22:05)
[2022-03-25] VITALS (25 sets, daily range): BP systolic 93–127; BP diastolic 6–74
[2022-03-25] MEDS ORDERED: PROPOFOL 100 ML ONE ×3 (01:05→21:38)
[2022-03-25] MEDS: PROPOFOL 100 ML IV PRN ×2 (01:07→11:34)
[2022-03-25 05:06] LABS: HEMATOCRIT 27.9 % (36.7-47.1); MEAN CORPUSCULAR HEMOGLOBIN 30.2 uug (23.8-33.4); MEAN CORPUSCULAR VOLUME 91.5 fL (73.0-96.2); PLATELET COUNT (AUTO) 140 K/uL (152-348)
--- NOTE | 2022-03-25 05:13 | NUR ---
PATIENT ON CONT CHILDERS VENT WITH 7.5 ET/TUBE IN PLACE AND SECURED WITH ANCHOR FAST, CURRENT VENT SETTINGS, A/C 14, VT 550ML, PEEP 8, FIO2 @ 65%, PT DOES ASSIST AT TIMES, NO VERBAL RESPONSE, SUCTIONED VERY LIGHT PALE YELL TINGE, GOOD COUGH EFFORT, CHANGE HME, ABG AT 0800.Antonia BELLO RCP Addendum: 03/25/22 at 0515 by DENISE BELLO RT Amended: Links added.
[2022-03-25 05:19] LABS: CARBON DIOXIDE 32 mmol/L (21-32); CHLORIDE 111 mmol/L (98-107); CREATININE 2.2 mg/dL (0.6-1.3); PHOSPHOROUS 7.2 mg/dL (2.5-4.9); POTASSIUM 4.8 mmol/L (3.5-5.1)
[2022-03-25 05:23] LABS: GLUCOSE 333 mg/dL (74-106); UREA NITROGEN, BLOOD 108 mg/dL (7-18)
--- NOTE | 2022-03-25 06:00 | NUR ---
--PT CONT. WITH STABLE VS. PT ALSO CONT. WITH ETT TO VENT. PT GERARDO WELL WITH POX OF 97-98%. PT OPENS EYES OCCASS. BUT DOESN'T FOLLOW SIMPLE COMMDS. PT HAS GEN. WEAKNESS. RIGHT ARM IS VERY EDEMATUS. IV I/P VIA RIGHT ARM PT. PT IS ON DIPRIVAN AND FENTANYL DRIPS FOR SEDATION. PT GERARDO WELL. ALSO PT HAS NGT FEEDG. PT GERARDO WELL/PLACEMT. RESID IS 10CC. PT HAS F/C-U/O 550CC. NO STOOL. BATH AND LINEN CHANGE DONE, AM LABS DONE. GEN COND HAS BEEN STABLE/GUARDED. PT ENDORSED TO AUGUSTA ALEX RN
--- NOTE | 2022-03-25 06:00 | NUR ---
FURTHER NOTE: PT HAS BEEN IN SR WITH PACING (ALMOST 80%). PT HAS PERM. PACER. PT ALSO HAS DTI ON BLEFT BUTTOCK AND COCCYC AREA. SKIN CARE GIVEN. ENDORSED TO DAY SHIFT RN THAT PT NEEDS WOUND CONSULT. ISAI DERAS
[2022-03-25 07:28] LABS: ABG BASE EXCESS 5.4 mmol/L; ABG HCO3 29.9 mmol/L; ABG PCO2 43.6 mmHg (35.0-45.0); ABG PH 7.454 (7.350-7.450); ABG PO2 108.1 mmHg (75.0-100.0); ABG SITE RIGHT RADIAL; ABG TOTAL HEMOGLOBIN 9.9 G/dL (13.5-18.0); COHb 0.3 % (0.5-1.5); MetHb 0.3 % (0.0-1.5); O2Hb 97.1 % (94.0-97.0); VENT MODE VENT - A/C; VT, ABG 550 mL
[2022-03-25] MEDS: BLOOD SUGAR DIAGNOSTIC 1 EACH STRIP VI SCH ×4 (07:30→21:00)
[2022-03-25] MEDS: CARVEDILOL 6.25 MG TABLET PO SCH ×2 (08:41→17:17)
[2022-03-25] MEDS ORDERED: methylPREDNISolone SOD SUCC 40 MG/ML VIAL ONE ×2 (08:46→21:34)
[2022-03-25] MEDS: methylPREDNISolone SOD SUCC 40 MG/ML VIAL IV SCH ×2 (08:48→21:00)
[2022-03-25] MEDS: LIDOCAINE 5% PATCH TD SCH (08:48)
[2022-03-25] MEDS: APIXABAN 2.5 MG TABLET PO SCH ×2 (08:53→21:00)
[2022-03-25] MEDS: INSULIN GLARGINE,HUM 300 UNITS/3 ML CARTRIDGE SQ SCH ×2 (08:55→22:22)
[2022-03-25] MEDS: INSULIN REGULAR, HUMAN 300 UNIT/3 ML VIAL SQ PRN ×3 (08:55→22:40)
[2022-03-25] MEDS: AMIODARONE HCL 200 MG TABLET PO SCH ×2 (09:02→21:00)
[2022-03-25] MEDS: MICAFUNGIN SODIUM 100 MG in IV NORMAL SALINE 100 ML IV SCH (14:33)
[2022-03-25] MEDS: FENTANYL CITRATE/PF 1,000 MCG in IV NORMAL SALINE 80 ML IV PRN (17:45)
[2022-03-25] MEDS: ATORVASTATIN 40 MG TABLET PO SCH (21:00)
[2022-03-25] MEDS: TAMSULOSIN HCL 0.4 MG CAP.SR.24H PO SCH (21:00)
[2022-03-25] MEDS ORDERED: ATORVASTATIN 20 MG TABLET ONE (21:35)
[2022-03-25] MEDS ORDERED: AMIODARONE HCL 200 MG TABLET ONE (21:36)
[2022-03-25] MEDS ORDERED: TAMSULOSIN HCL 0.4 MG CAP.SR.24H ONE (21:36)
[2022-03-26] VITALS (25 sets, daily range): BP systolic 113–138; BP diastolic 54–67
[2022-03-26 05:01] LABS: HEMATOCRIT 28.4 % (36.7-47.1); MEAN CORPUSCULAR HEMOGLOBIN 30.2 uug (23.8-33.4); MEAN CORPUSCULAR VOLUME 91.2 fL (73.0-96.2); PLATELET COUNT (AUTO) 158 K/uL (152-348)
[2022-03-26 05:11] LABS: CARBON DIOXIDE 31 mmol/L (21-32); CHLORIDE 111 mmol/L (98-107); CREATININE 2.2 mg/dL (0.6-1.3); GLUCOSE 277 mg/dL (74-106); PHOSPHOROUS 5.8 mg/dL (2.5-4.9)
[2022-03-26 05:14] LABS: UREA NITROGEN, BLOOD 118 mg/dL (7-18)
[2022-03-26] MEDS: BLOOD SUGAR DIAGNOSTIC 1 EACH STRIP VI SCH ×3 (07:55→18:45)
[2022-03-26] MEDS: INSULIN REGULAR, HUMAN 300 UNIT/3 ML VIAL SQ PRN ×2 (07:56→12:15)
[2022-03-26] MEDS: CARVEDILOL 6.25 MG TABLET PO SCH ×2 (08:00→18:45)
[2022-03-26 08:26] LABS: ABG BASE EXCESS 4.3 mmol/L; ABG HCO3 28.4 mmol/L; ABG PCO2 40.3 mmHg (35.0-45.0); ABG PH 7.466 (7.350-7.450); ABG PO2 118.9 mmHg (75.0-100.0); ABG SITE RIGHT RADIAL; ABG TOTAL HEMOGLOBIN 9.2 G/dL (13.5-18.0); COHb 0.3 % (0.5-1.5); MetHb 0.1 % (0.0-1.5); O2Hb 97.5 % (94.0-97.0); VENT MODE VENT - A/C; VT, ABG 550 mL
[2022-03-26] MEDS ORDERED: methylPREDNISolone SOD SUCC 40 MG/ML VIAL ONE ×2 (08:55→19:41)
[2022-03-26] MEDS ORDERED: PANTOPRAZOLE SODIUM 40 MG VIAL ONE (08:55)
[2022-03-26] MEDS ORDERED: AMIODARONE HCL 200 MG TABLET ONE ×2 (08:56→19:41)
[2022-03-26] MEDS ORDERED: PROPOFOL 100 ML ONE ×3 (08:59→22:07)
[2022-03-26] MEDS: PROPOFOL 100 ML IV PRN ×2 (09:03→19:08)
[2022-03-26] MEDS: methylPREDNISolone SOD SUCC 40 MG/ML VIAL IV SCH ×2 (09:09→20:59)
[2022-03-26] MEDS: AMIODARONE HCL 200 MG TABLET PO SCH ×2 (09:10→20:59)
[2022-03-26] MEDS: APIXABAN 2.5 MG TABLET PO SCH ×2 (09:14→21:03)
[2022-03-26] MEDS: INSULIN GLARGINE,HUM 300 UNITS/3 ML CARTRIDGE SQ SCH ×2 (09:16→21:00)
[2022-03-26] MEDS: LIDOCAINE 5% PATCH TD SCH (09:20)
[2022-03-26] MEDS: MICAFUNGIN SODIUM 100 MG in IV NORMAL SALINE 100 ML IV SCH (14:27)
[2022-03-26] MEDS ORDERED: CARVEDILOL 6.25 MG TABLET ONE (16:01)
[2022-03-26] MEDS: FENTANYL CITRATE/PF 1,000 MCG in IV NORMAL SALINE 80 ML IV PRN (16:24)
--- NOTE | 2022-03-26 16:27 | NUR ---
Specialty mattress applied and inflated for comfort.
--- NOTE | 2022-03-26 19:08 | NUR ---
New OG tube placed 18 nigerien taped and secured at 60cm placement verified via auscultation awaiting stat single view xray for placement verification.l
[2022-03-26] MEDS ORDERED: ATORVASTATIN 20 MG TABLET ONE (19:40)
[2022-03-26] MEDS ORDERED: TAMSULOSIN HCL 0.4 MG CAP.SR.24H ONE (19:42)
[2022-03-26] MEDS: TAMSULOSIN HCL 0.4 MG CAP.SR.24H PO SCH (20:59)
[2022-03-26] MEDS: ATORVASTATIN 40 MG TABLET PO SCH (21:00)
[2022-03-27] VITALS (24 sets, daily range): BP systolic 115–135; BP diastolic 51–64
[2022-03-27] MEDS: INSULIN REGULAR, HUMAN 300 UNIT/3 ML VIAL SQ PRN ×4 (01:29→18:17)
[2022-03-27] MEDS: PROPOFOL 100 ML IV PRN ×2 (04:24→23:45)
[2022-03-27] MEDS: BLOOD SUGAR DIAGNOSTIC 1 EACH STRIP VI SCH ×4 (06:33→18:19)
[2022-03-27 07:36] LABS: ABG BASE EXCESS 3.4 mmol/L; ABG HCO3 27.5 mmol/L; ABG PCO2 39.8 mmHg (35.0-45.0); ABG PH 7.457 (7.350-7.450); ABG PO2 97.3 mmHg (75.0-100.0); ABG SITE RIGHT RADIAL; ABG TOTAL HEMOGLOBIN 9.6 G/dL (13.5-18.0); COHb 0.3 % (0.5-1.5); MetHb 0.2 % (0.0-1.5); O2Hb 96.2 % (94.0-97.0); VENT MODE VENT - A/C; VT, ABG 550 mL
[2022-03-27] MEDS ORDERED: methylPREDNISolone SOD SUCC 40 MG/ML VIAL ONE ×2 (09:09→19:49)
[2022-03-27] MEDS ORDERED: AMIODARONE HCL 200 MG TABLET ONE ×2 (09:09→19:49)
[2022-03-27] MEDS ORDERED: PANTOPRAZOLE SODIUM 40 MG VIAL ONE (09:10)
[2022-03-27] MEDS ORDERED: CARVEDILOL 6.25 MG TABLET ONE ×2 (09:12→17:55)
[2022-03-27] MEDS: AMIODARONE HCL 200 MG TABLET PO SCH ×2 (09:15→21:02)
[2022-03-27] MEDS: methylPREDNISolone SOD SUCC 40 MG/ML VIAL IV SCH ×2 (09:15→21:02)
[2022-03-27] MEDS: CARVEDILOL 6.25 MG TABLET PO SCH ×2 (09:16→18:18)
[2022-03-27] MEDS: APIXABAN 2.5 MG TABLET PO SCH ×2 (09:18→21:04)
[2022-03-27] MEDS: INSULIN GLARGINE,HUM 300 UNITS/3 ML CARTRIDGE SQ SCH ×2 (09:20→21:02)
[2022-03-27] MEDS: LIDOCAINE 5% PATCH TD SCH (09:22)
[2022-03-27] MEDS ORDERED: LIDOCAINE 5% PATCH TD ONE (09:22)
[2022-03-27 11:02] LABS: HEMATOCRIT 25.8 % (36.7-47.1); MEAN CORPUSCULAR HEMOGLOBIN 30.2 uug (23.8-33.4); PLATELET COUNT (AUTO) 168 K/uL (152-348)
[2022-03-27 11:15] LABS: CARBON DIOXIDE 30 mmol/L (21-32); CHLORIDE 117 mmol/L (98-107); CREATININE 1.8 mg/dL (0.6-1.3); GLUCOSE 210 mg/dL (74-106); POTASSIUM 4.2 mmol/L (3.5-5.1)
[2022-03-27 11:23] LABS: UREA NITROGEN, BLOOD 106 mg/dL (7-18)
[2022-03-27] MEDS ORDERED: PROPOFOL 100 ML ONE ×2 (11:41→22:34)
[2022-03-27] MEDS: MICAFUNGIN SODIUM 100 MG in IV NORMAL SALINE 100 ML IV SCH (12:32)
[2022-03-27] MEDS: FENTANYL CITRATE/PF 1,000 MCG in IV NORMAL SALINE 80 ML IV PRN (19:42)
[2022-03-27] MEDS ORDERED: ATORVASTATIN 20 MG TABLET ONE (19:49)
[2022-03-27] MEDS ORDERED: TAMSULOSIN HCL 0.4 MG CAP.SR.24H ONE (19:50)
[2022-03-27] MEDS ORDERED: INSULIN GLARGINE,HUM 300 UNITS/3 ML CARTRIDGE SQ ONE (19:56)
[2022-03-27] MEDS: TAMSULOSIN HCL 0.4 MG CAP.SR.24H PO SCH (21:03)
[2022-03-27] MEDS: ATORVASTATIN 40 MG TABLET PO SCH (21:05)
[2022-03-28] VITALS (24 sets, daily range): BP systolic 106–134; BP diastolic 49–65
[2022-03-28 05:34] LABS: HEMATOCRIT 25.7 % (36.7-47.1); MEAN CORPUSCULAR HEMOGLOBIN 30.5 uug (23.8-33.4); MEAN CORPUSCULAR VOLUME 91.3 fL (73.0-96.2); PLATELET COUNT (AUTO) 160 K/uL (152-348)
[2022-03-28 05:47] LABS: CARBON DIOXIDE 32 mmol/L (21-32); CHLORIDE 117 mmol/L (98-107); CREATININE 1.8 mg/dL (0.6-1.3); GLUCOSE 206 mg/dL (74-106); MAGNESIUM 3.1 mg/dL (1.8-2.4); PHOSPHOROUS 4.6 mg/dL (2.5-4.9); POTASSIUM 4.2 mmol/L (3.5-5.1); TRIGLYCERIDES 299 MG/DL (30-150)
[2022-03-28 05:52] LABS: UREA NITROGEN, BLOOD 112 mg/dL (7-18)
[2022-03-28] MEDS ORDERED: PROPOFOL 100 ML ONE (05:53)
[2022-03-28] MEDS: BLOOD SUGAR DIAGNOSTIC 1 EACH STRIP VI SCH ×4 (06:42→18:44)
--- NOTE | 2022-03-28 06:53 | NUR ---
pt sedated throughout the night. vss. febrile beginning of the shift at 100.1F but came down to 98.x by the end of the shift. 600 uo.
[2022-03-28] MEDS: PROPOFOL 100 ML IV PRN (07:58)
[2022-03-28] MEDS ORDERED: CARVEDILOL 6.25 MG TABLET ONE (08:20)
[2022-03-28] MEDS ORDERED: LIDOCAINE 5% PATCH TD ONE (08:20)
[2022-03-28] MEDS ORDERED: AMIODARONE HCL 200 MG TABLET ONE (08:20)
[2022-03-28] MEDS ORDERED: methylPREDNISolone SOD SUCC 40 MG/ML VIAL ONE (08:27)
[2022-03-28] MEDS: APIXABAN 2.5 MG TABLET PO SCH ×3 (08:47→23:07)
[2022-03-28] MEDS: INSULIN GLARGINE,HUM 300 UNITS/3 ML CARTRIDGE SQ SCH ×2 (08:50→21:00)
[2022-03-28] MEDS: CARVEDILOL 6.25 MG TABLET PO SCH ×2 (08:51→18:00)
[2022-03-28] MEDS: methylPREDNISolone SOD SUCC 40 MG/ML VIAL IV SCH ×2 (08:52→21:00)
[2022-03-28] MEDS: LIDOCAINE 5% PATCH TD SCH (08:52)
[2022-03-28] MEDS: AMIODARONE HCL 200 MG TABLET PO SCH ×2 (08:52→22:31)
--- NOTE | 2022-03-28 12:05 | NUR ---
Family in to visit updated on status
[2022-03-28] MEDS: INSULIN REGULAR, HUMAN 300 UNIT/3 ML VIAL SQ PRN ×2 (12:28→23:09)
[2022-03-28] MEDS: FENTANYL CITRATE/PF 1,000 MCG in IV NORMAL SALINE 80 ML IV PRN (18:47)
[2022-03-28] MEDS ORDERED: INSULIN GLARGINE,HUM 300 UNITS/3 ML CARTRIDGE SQ ONE ×2 (22:02→22:03)
[2022-03-28] MEDS ORDERED: APIXABAN 5 MG TABLET ONE (22:13)
[2022-03-28] MEDS: ATORVASTATIN 40 MG TABLET PO SCH (22:31)
[2022-03-28] MEDS: TAMSULOSIN HCL 0.4 MG CAP.SR.24H PO SCH (22:32)
[2022-03-28] MEDS: ACETAMINOPHEN 325 MG TABLET PO PRN (23:30)
[2022-03-29] VITALS (13 sets, daily range): BP systolic 107–132; BP diastolic 55–70
[2022-03-29] MEDS: PROPOFOL 100 ML IV PRN (00:52)
[2022-03-29 05:17] LABS: HEMATOCRIT 25.6 % (36.7-47.1); MEAN CORPUSCULAR HEMOGLOBIN 30.8 uug (23.8-33.4); MEAN CORPUSCULAR VOLUME 91.4 fL (73.0-96.2); PLATELET COUNT (AUTO) 172 K/uL (152-348)
[2022-03-29 05:22] LABS: CARBON DIOXIDE 31 mmol/L (21-32); CHLORIDE 120 mmol/L (98-107); CREATININE 1.8 mg/dL (0.6-1.3); GLUCOSE 214 mg/dL (74-106); MAGNESIUM 3.3 mg/dL (1.8-2.4); PHOSPHOROUS 4.5 mg/dL (2.5-4.9); POTASSIUM 4.6 mmol/L (3.5-5.1)
[2022-03-29 05:31] LABS: UREA NITROGEN, BLOOD 119 mg/dL (7-18)
[2022-03-29] MEDS: BLOOD SUGAR DIAGNOSTIC 1 EACH STRIP VI SCH ×2 (06:00)
--- NOTE | 2022-03-29 06:00 | NUR ---
--PT CONT. WITH STABLE VS EXCEPT TEMP WAS UP TO 101F(O). TYLENOL AND COOLING ANTONIA GIVEN. IVS I/P. PT CONT. WITH DIPRIVAN AND FENT. DRIPS FOR SEDATION. IV I/P VIA RIGHT ARM ML. PT HAS RIGHT FEMORAL EVANGELINA CATH INTACT. PT OPENS EYES OCCASS. BUT DOESN'T FOLLOW S.COMMDS. PT HAS ETT TO VENT. PT GERARDO WELL WITH POX OF 96%. AM LABS AND ABG DONE. ABG RESULTS WNL. PT GERARDO SX AND RTX WELL. PT HAS THICK AMT OF PALE WHITE SPUT-MOD AMT. PT HAS OGT-PT GERARDO T.FEEDG WELL WITH RESID OF 10CC. HOB UP> 30 DEGREES. F/C I/P WITH 400CC OUT-YOEL/CLR. NO STOOL. BATH AND AM CARE DONE. PT HAS TERMINAL EXTUBATION ORDERED POSSIBLY FOR TODAY. DAYSHIFT AUGUSTA LE IS AWARE. GEN. COND HAS BEEN STABLE/GUARDED. PT ENDORSED TO AUGUSTA LE. ISAI DERAS
--- NOTE | 2022-03-29 07:25 | NUR ---
Received report patient on Fentanyl drip running at 40 mcg/hr or 4ml/hr and Diprivan 25mcg/kg/min
[2022-03-29] MEDS: INSULIN REGULAR, HUMAN 300 UNIT/3 ML VIAL SQ PRN (07:28)
[2022-03-29] MEDS: methylPREDNISolone SOD SUCC 40 MG/ML VIAL IV SCH (08:39)
[2022-03-29] MEDS: CARVEDILOL 6.25 MG TABLET PO SCH (08:39)
[2022-03-29] MEDS: AMIODARONE HCL 200 MG TABLET PO SCH (08:40)
[2022-03-29] MEDS: LIDOCAINE 5% PATCH TD SCH (08:40)
[2022-03-29] MEDS: INSULIN GLARGINE,HUM 300 UNITS/3 ML CARTRIDGE SQ SCH (08:53)
[2022-03-29 10:13] LABS: ABG BASE EXCESS 3.5 mmol/L; ABG PCO2 42.1 mmHg (35.0-45.0); ABG PH 7.441 (7.350-7.450); ABG PO2 87.2 mmHg (75.0-100.0); ABG SITE LEFT RADIAL; ABG TOTAL HEMOGLOBIN 11.1 G/dL (13.5-18.0); COHb 0.3 % (0.5-1.5); MetHb 0.2 % (0.0-1.5); O2Hb 95.6 % (94.0-97.0); VENT MODE VENT - A/C; VT, ABG 550 mL
[2022-03-29] MEDS ORDERED: ACETAMINOPHEN 650 MG SUPP.RECT RC PRN (11:00)
[2022-03-29] MEDS ORDERED: MORPHINE SULFATE PF IV DRIP 100 MG in IV DEXTROSE 5% 96 ML IV PRN (11:00)
[2022-03-29] MEDS ORDERED: ONDANSETRON 4 MG/2 ML VIAL IV PRN (11:00)
[2022-03-29] MEDS ORDERED: LORAZEPAM 2 MG/1 ML VIAL IV PRN (11:00)
--- NOTE | 2022-03-29 11:50 | NUR ---
1000 Family in to see patient last visit mortuary information provided to nurse. [employer] [phone]. No belongings on intake sheet cell phone taken home.
--- NOTE | 2022-03-29 11:52 | NUR ---
Terminal extubation by RT and Morphine started 2mg hour for comfort.
[2022-03-29] MEDS ORDERED: MORPHINE SULFATE 2 MG/1 ML DISP.SYRIN IV ONE (12:15)
--- NOTE | 2022-03-29 12:51 | NUR ---
No signs of respiration and patient apneic for 1 minute. Pupils fixed and dilated. No audible heart sounds for one minute. No palpable pulses for one minute. No corneal reflexes patient pronounced at 1236. Physician Dr Carrillo notified via telephone, called ice house supervisor and legacy notified.
--- NOTE | 2022-03-29 13:31 | NUR ---
[facility] [employer] called at 1300 spoke with Ana Porter# [phone] they will call [facility] back in one hour. Called and notified family Delano Garcia at [phone] Tamera Garcia also on the line both notified of passing at 1236 today peacefully.
--- NOTE | 2022-03-29 14:14 | NUR ---
Starch Dumper present and called [employer] [facility] family choice [employer] [phone]. Post mortum care provided and security to picker and transfer to [facility].
== END 2022-03-29 15:00 | DRG 870 ==
LOC: ER 11:45 → TELE3 16:39 → CCU 03-15 08:44 → TRANSITION 03-15 09:31 → CCU 03-18 15:27 → TRANSITION 03-27 14:03 → CCU 03-28 18:13
PROVIDERS: ADMIT Nurse Practitioner Acute Care; ATTEND Nurse Practitioner Family
PROC: 5A1955Z Respiratory Ventilation, Greater than 96 Consecutive Hours (ICD-10-PCS; principal; 2022-03-15)
PROC: 0BH17EZ Insertion of Endotracheal Airway into Trachea, Via Natural or Artificial Opening (ICD-10-PCS; 2022-03-15)
PROC: 02HV33Z Insertion of Infusion Device into Superior Vena Cava, Percutaneous Approach (ICD-10-PCS; 2022-03-15)
PROC: B548ZZA Ultrasonography of Superior Vena Cava, Guidance (ICD-10-PCS; 2022-03-15)
PROC: 06HY33Z Insertion of Infusion Device into Lower Vein, Percutaneous Approach (ICD-10-PCS; 2022-03-16)
PROC: 5A1D70Z Performance of Urinary Filtration, Intermittent, Less than 6 Hours Per Day (ICD-10-PCS; 2022-03-17)
DX: A41.9 Sepsis, unspecified organism (principal); G92.8 Other toxic encephalopathy; I21.A1 Myocardial infarction type 2; J15.9 Unspecified bacterial pneumonia; N17.0 Acute kidney failure with tubular necrosis; J96.01 Acute respiratory failure with hypoxia; I50.33 Acute on chronic diastolic (congestive) heart failure; J69.0 Pneumonitis due to inhalation of food and vomit; R65.21 Severe sepsis with septic shock; E43 Unspecified severe protein-calorie malnutrition; E87.20 Acidosis, unspecified; I48.92 Unspecified atrial flutter; R64 Cachexia; N39.0 Urinary tract infection, site not specified; J98.11 Atelectasis; E87.0 Hyperosmolality and hypernatremia; J44.1 Chronic obstructive pulmonary disease with (acute) exacerbation; I82.613 Acute embolism and thrombosis of superficial veins of upper extremity, bilateral; Z68.1 Body mass index [BMI] 19.9 or less, adult; Z51.5 Encounter for palliative care; E86.0 Dehydration; E87.6 Hypokalemia; I25.10 Atherosclerotic heart disease of native coronary artery without angina pectoris; I48.0 Paroxysmal atrial fibrillation; Z99.2 Dependence on renal dialysis; Z95.810 Presence of automatic (implantable) cardiac defibrillator; F43.10 Post-traumatic stress disorder, unspecified; Z20.822 Contact with and (suspected) exposure to COVID-19; G89.29 Other chronic pain; R29.6 Repeated falls; E11.65 Type 2 diabetes mellitus with hyperglycemia; W19.XXXA Unspecified fall, initial encounter; Y93.9 Activity, unspecified; Y92.009 Unspecified place in unspecified non-institutional (private) residence as the place of occurrence of the external cause; F29 Unspecified psychosis not due to a substance or known physiological condition; R62.7 Adult failure to thrive; Z79.4 Long term (current) use of insulin; T17.990A Other foreign object in respiratory tract, part unspecified in causing asphyxiation, initial encounter; X58.XXXA Exposure to other specified factors, initial encounter; E87.5 Hyperkalemia; N32.3 Diverticulum of bladder; I11.0 Hypertensive heart disease with heart failure; Z66 Do not resuscitate
CPT/HCPCS: 36415; 36569; 36600; 70030-TC; 71045; 71275; 76770; 82803; 83605; 83690; 83735; 84100; 84478; 84484; 85025; 86140; 86704; 86705; 86706; 86803; 87040; 87070; 87086; 87340; 90937; 93005; 93307; 93880; 94002; 94003; 99082-TC; A4663; A6209; C9113; G0378; J0282; J0330; J0360; J0696; J1170; J1644; J1650; J1815; J1940; J2060; J2185; J2248; J2250; J2270; J2274; J2358; J2370; J2405; J2920; J2930; J3010; J3475; J3490; J7040; J7050; P9047; Q9967